=== PATIENT | female | born 1985 | race Caucasian/White ===

== ENCOUNTER 2016-10-18 15:47 | Emergency (ER) | payer SELFPAY ==
[2016-10-18 16:05] VITALS: BMI 37.8
[2016-10-18 17:22] LABS: BASOPHILS % (AUTO) 0.6 % (0.2-1.0); EOSINOPHILS # (AUTO) 0.3 x10^3/uL (0.0-0.2); EOSINOPHILS % (AUTO) 3.4 % (0.9-2.9); HEMATOCRIT 34.1 % (36.0-47.0); HEMOGLOBIN 11.5 g/dL (12.0-16.0); LYMPHOCYTES # (AUTO) 2.7 X10^3/uL (1.3-2.9); LYMPHOCYTES % (AUTO) 33.1 % (21.0-51.0); MEAN CORPUSCULAR HGB CONC 33.6 g/dL (33.0-35.0); MEAN CORPUSCULAR VOLUME 80.2 fL (80.0-100.0); MEAN PLATELET VOLUME 9.2 fL (7.4-11.0); MONOCYTES # (AUTO) 0.7 x10^3/uL (0.3-0.8); MONOCYTES % (AUTO) 8.6 % (0.0-13.0); NEUTROPHILS # (AUTO) 4.4 x10^3/uL (2.2-4.8); NEUTROPHILS % (AUTO) 54.3 % (42.0-75.0); PLATELET COUNT 284 X10^3/uL (150.0-450.0); RED BLOOD COUNT 4.26 X10^6/uL (3.5-5.4); WHITE BLOOD COUNT 8.1 X10^3/uL (3.6-10.0)
[2016-10-18 17:24] VITALS: BP 124/73
[2016-10-18 17:37] LABS: BLOOD UREA NITROGEN 8 mg/dL (7-18); CALCIUM 8.4 mg/dL (8.5-10.1); CARBON DIOXIDE 29.5 mmol/L (21-32); CHLORIDE 106 mmol/L (98-107); CREATININE 0.89 mg/dL (0.55-1.02); GLUCOSE 108 mg/dL (65-99); SODIUM 141 mmol/L (136-145); TROPONIN I < 0.02 ng/mL (0-1.5); eGFR BLACK RACES > 60 (>60); eGFR NON BLACK RACES > 60 (>60)
[2016-10-18 17:42] LABS: ALANINE AMINOTRANSFERASE 35 Units/L (12-78); ALBUMIN 3.1 g/dL (3.4-5.0); ALKALINE PHOSPHATASE 72 Units/L (46-116); ASPARTATE AMINO TRANSFERASE 22 Units/L (15-37); CKMB % 7.7 % (<4); COR CA(FOR HYPOALB) 9.1 mg/dL (8.5-10.1); CREATINE KINASE 13 Units/L (26-192); CREATINE KINASE MB < 1.0 ng/mL (0-4.0); TOTAL PROTEIN 7.5 g/dL (6.4-8.2)
[2016-10-18 17:45] LABS: D DIMER 354 ng/mL (0-400)
--- NOTE | 2016-10-18 17:54 | DR.CP ---
HPI - PCP Primary Care Physician: ENMANUEL HERNANDEZ - Complaint Chief Complaint:: PT STATES " SHE HAS BEEN REALLY STRESSED AND SHE HAS BEEN HAVING CHEST PAIN AND SOB AND THE PAIN IS GOING TO HER LEFT ARM AND HER NECK AND TO HER EARS AND SHE FEELS LIKE SHE IS SMOOTHERING" - Reviewed Nurses Notes Review: Yes - Source History Provided: Patient - Mode of Arrival Mode of Arrival: Ambulatory - Timing Onset of Chief Complaint: 10/17/16 - Location Chest Pain Radiation Location: Left Arm - Associated Signs and Symptoms Associated Signs and Symptoms: Shortness of Breath PMH - PMH Past Medical History: Yes Past Medical History: Asthma, Migraines, Hypertension Past Surgical History: Yes Surgical History: - Family History History of Family Medical Conditions: Yes Family Medical History: Coronary Artery Disease, Hypertension - Social History Does patient currently use any type of tobacco product: No Have you used tobacco products in the last 12 months: No Type of Tobacco Use: None Does any household member use tobacco: No Alcohol Use: Rarely Do you use any recreational Drugs:: No Lives With: Family Lives Where: Home - infectious screening In the last 2 months have you had wt loss of >10#?: NO Have you had fever, night sweats or hemotysis?: No Have you traveled outside the country in the last 6 months?: No Isolation: Standard PE - Vitals Vitals: Pulse Rate [Right Brachial] 77 Pulse Rate 98 Respiratory Rate 20 Blood Pressure [Left Arm] 124/73 Blood Pressure [Right Arm] 138/78 Blood Pressure 139/93 O2 Sat by Pulse Oximetry 100 ROR - Labs Reviewed Result Diagrams: 10/18/16 17:12 10/18/16 17:12 Laboratory: WBC 8.1 X10^3/uL (3.6-10.0) 10/18/16 17:12 RBC 4.26 X10^6/uL (3.5-5.4) 10/18/16 17:12 Hgb 11.5 g/dL (12.0-16.0) L 10/18/16 17:12 Hct 34.1 % (36.0-47.0) L 10/18/16 17:12 MCV 80.2 fL (80.0-100.0) 10/18/16 17:12 MCH 27.0 pg (27.0-34.0) 10/18/16 17:12 MCHC 33.6 g/dL (33.0-35.0) 10/18/16 17:12 RDW 15.0 % (11.6-16.5) 10/18/16 17:12 Plt Count 284 X10^3/uL (150.0-450.0) 10/18/16 17:12 MPV 9.2 fL (7.4-11.0) 10/18/16 17:12 Neut % 54.3 % (42.0-75.0) 10/18/16 17:12 Lymph % 33.1 % (21.0-51.0) 10/18/16 17:12 [place] % 8.6 % (0.0-13.0) 10/18/16 17:12 Eos % 3.4 % (0.9-2.9) H 10/18/16 17:12 Baso % 0.6 % (0.2-1.0) 10/18/16 17:12 Neut # 4.4 x10^3/uL (2.2-4.8) 10/18/16 17:12 Lymph # 2.7 X10^3/uL (1.3-2.9) 10/18/16 17:12 [place] # 0.7 x10^3/uL (0.3-0.8) 10/18/16 17:12 Eos # 0.3 x10^3/uL (0.0-0.2) H 10/18/16 17:12 Baso # 0.0 X10^3/uL (0.0-0.1) 10/18/16 17:12 Absolute Nucleated RBC 0.0 /100WBC 10/18/16 17:12 D-Dimer 354 ng/mL (0-400) 10/18/16 17:12 Sodium 141 mmol/L (136-145) 10/18/16 17:12 Corrected Sodium TNP 10/18/16 17:12 Potassium 3.3 mmol/L (3.5-5.1) L 10/18/16 17:12 Chloride 106 mmol/L (98-107) 10/18/16 17:12 Carbon Dioxide 29.5 mmol/L (21-32) 10/18/16 17:12 BUN 8 mg/dL (7-18) 10/18/16 17:12 Creatinine 0.89 mg/dL (0.55-1.02) 10/18/16 17:12 Est GFR (MDRD) Af Amer > 60 (>60) 10/18/16 17:12 Est GFR (MDRD) Non-Af > 60 (>60) 10/18/16 17:12 Glucose 108 mg/dL (65-99) H 10/18/16 17:12 Calcium 8.4 mg/dL (8.5-10.1) L 10/18/16 17:12 Corrected Calcium 9.1 mg/dL (8.5-10.1) 10/18/16 17:12 Total Bilirubin 0.40 mg/dL (0.2-1.0) 10/18/16 17:12 AST 22 Units/L (15-37) 10/18/16 17:12 ALT 35 Units/L (12-78) 10/18/16 17:12 Alkaline Phosphatase 72 Units/L (46-116) 10/18/16 17:12 Creatine Kinase 13 Units/L (26-192) L 10/18/16 17:12 CK-MB (CK-2) < 1.0 ng/mL (0-4.0) 10/18/16 17:12 CK/CKMB % Calc 7.7 % (<4) 10/18/16 17:12 Troponin I < 0.02 ng/mL (0-1.5) 10/18/16 17:12 Total Protein 7.5 g/dL (6.4-8.2) 10/18/16 17:12 Albumin 3.1 g/dL (3.4-5.0) L 10/18/16 17:12 Globulin 4.4 g/dL (2.5-4.5) 10/18/16 17:12 Albumin/Globulin Ratio 0.7 Ratio (1.1-2.1) L 10/18/16 17:12 - Diagnosis Discharge Problem: Chest pain - Discharge Plan Condition: Stable Prescriptions: Hydroxyzine Pamoate [Vistaril] 25 mg PO TID PRN #20 cap PRN Reason: Ibuprofen [MOTRIN TAB 600 MG *] 600 mg PO TID PRN #20 tab PRN Reason: Pain/Inflammation Ranitidine HCl [ZANTAC TAB 150 MG *] 150 mg PO BID #30 tab - Follow ups/Referrals Follow ups/Referrals: Patricia Hernandez [Primary Care Provider] - 3 days - Instructions Instructions: Chest Pain Observation Additional Instructions: RETURN TO ED IF WORSE.
--- NOTE | 2016-10-18 17:57 | RAD ---
Chest, one view Indication: Chest pain. Comparison: None Findings: The cardiac silhouette is unremarkable. The lungs are clear, without focal infiltrates or significant pleural effusion. The bony thorax is unremarkable. Impression: No acute chest process. Reported By:
[2016-10-18] MEDS ORDERED: POTASSIUM CHLORIDE LIQ 20 MEQ UDC PO ONE (18:04)
[2016-10-18] MEDS ORDERED: POTASSIUM CHLORIDE LIQ 20 MEQ UDC ONE (18:20)
== END 2016-10-18 18:30 | disposition home or self-care (01) ==
LOC: ER 16:08
DX: R07.89 Other chest pain (principal)
CPT/HCPCS: 36415; 71010; 80053; 82550; 82553; 84484; 85025; 85378; 93005; 93010; 99282

== ENCOUNTER 2017-05-25 20:51 | Emergency (ER) | payer SELFPAY ==
[2017-05-25 20:56] VITALS: BMI 40.8
--- NOTE | 2017-05-25 21:54 | DR.GENAD ---
HPI - PCP Primary Care Physician: hayes - Complaint/Symptoms Chief Complaint Doctors Comments: Patient reports that family has the flu. She feels bad all over. Chief Complaint:: FLU LIKE S/S FOR THE LAST FEW DAYS 3-4 DAYS, BODY ACHES, NAUSEA, FEVER, COUGH Self Treatment fo Chief Complaint: THERAFLU - Source History Provided: Patient - Mode of Arrival Mode of Arrival: Ambulatory - Timing Onset of Chief Complaint: 05/21/17 PMH - PMH Past Medical History: Yes Past Medical History: Asthma, Migraines, Hypertension Past Surgical History: Yes Surgical History: Past Surgical History Comment: TUBALIGATION - Family History History of Family Medical Conditions: Yes Family Medical History: Coronary Artery Disease, Hypertension - Social History Alcohol Use: None Do you use any recreational Drugs:: No Lives With: Family Lives Where: Home - infectious screening Have you traveled outside the country in the last 6 months?: No Isolation: Standard ROS - Review of Systems Eyes: No Symptoms Reported ENTM: No Symptoms Reported Respiratoy: No Symptoms Reported Cardiovascular: No Symptoms Reported Gastrointestinal/Abdominal: No Symptoms Reported Genitourinary: No Symptoms Reported Neurological: No Symptoms Reported Musculoskeletal: No Symptoms Reported Integumentary: No Symptoms Reported Hematologic/Lymphatic: No Symptoms Reported Endocrine: No Symptoms Reported Psychiatric: No Symptoms Reported All Other Systems: Reviewed and Negative PE - Vital Signs Vitals: Temperature 100.0 F Pulse Rate 100 Respiratory Rate 18 Blood Pressure [Left Arm] 124/73 Blood Pressure [Right Arm] 138/78 Blood Pressure 127/65 O2 Sat by Pulse Oximetry 99 - General General Appearance: Alert - Head Head Exam: Normal Inspection, Atraumatic - Eyes Eye exam: Normal Appearance, PERRL, EOMI - ENT ENT Exam: Normal Exam External Ear Exam: Normal External Inspection TM/Canal Exam: Bilateral Normal Nose Exam: Normal Nose Exam Mouth Exam: Normal Inspection Throat Exam: Normal Inspection - Neck Neck Exam: Normal Inspection - Chest Chest Inspection: Normal Inspection, Symmetric Chest Wall Rise - Respiratory Respiratory Exam: Normal Lung Sounds Bilat Respiratory Exam: Bilateral Clear to Auscultation - Cardiovascular Cardiovascular Exam: Regular Rate, Normal Rhythm - Abdominal Exam Abdominal Exam: Normal Inspection Abdominal Tenderness: negative: RUQ, RLQ, LUQ, LLQ, Epigastrium, Suprapubic, Diffuse, Mild, Moderate, Severe, Other - Extremities Extremities Exam: Normal Inspection, Full ROM - Back Back Exam: Normal Inspection, Full ROM - Neurologic Neurological Exam: Alert, Oriented X3, CN II-XII Intact - Psychiatric Psychiatric Exam: Normal Affect, Normal Mood - Skin Skin Exam: Warm, Dry, Intact ROR - Labs Reviewed Laboratory Results Reviewed?: Yes (influenza B) Laboratory: S. pyogenes (TEM-PCR) Not detected (NOT DETECT) 05/25/17 21:26 - Diagnosis Discharge Problem: Influenza - Discharge Plan Condition: Stable - Follow ups/Referrals Follow ups/Referrals: SARA HAYES [Primary Care Provider] - 3 days - Instructions
[2017-05-25] MEDS ORDERED: ROBITUSSIN AC PO ONE (22:52)
[2017-05-25] MEDS ORDERED: ZOFRAN SYRUP 4 MG UDC PO ONE (22:53)
[2017-05-25] MEDS ORDERED: ZOFRAN SYRUP 4 MG UDC ONE (22:54)
[2017-05-25] MEDS ORDERED: ROBITUSSIN AC ONE (22:55)
[2017-05-25 23:02] VITALS: BP 134/67
== END 2017-05-25 23:01 | disposition home or self-care (01) ==
LOC: ER 20:51
DX: J10.1 Influenza due to other identified influenza virus with other respiratory manifestations (principal)
CPT/HCPCS: 87502; 87651; 99282; 99283; Q0162